=== PATIENT | female | born 1945 | race Caucasian/White ===

== ENCOUNTER 2022-02-19 14:23 | Inpatient (IN) | payer MEDICARE ==
[~2022-02-19] VITALS: Ht 162.6 cm; Wt 94.1 kg
[2022-02-19] MEDS ORDERED: MORPHINE 4 MG/ML 1ML VIAL/SYRINGE IV ONE ×2 (14:40→15:40)
[2022-02-19 15:05] LABS: BASO # 0.1 10^3/uL (0.0-0.2); BASO % 0.5 % (0.0-1.0); EOS # 0.1 10^3/uL (0.0-0.5); EOS % 1.1 % (0.0-3.0); HEMATOCRIT 36.4 % (36.0-47.0); LYMPH # 1.3 10^3/uL (1.5-5.0); LYMPH % 10.4 % (24.0-44.0); MEAN CORPUSCULAR HEMOGLOBIN 24.7 pg (27.0-33.0); MEAN CORPUSCULAR HGB CONC 30.2 g/dl (32.0-36.5); MEAN CORPUSCULAR VOLUME 81.8 fl (80.0-96.0); MONO # 0.9 10^3/uL (0.0-0.8); MONO % 6.8 % (2.0-8.0); NEUTROPHILS # 10.3 10^3/uL (1.5-8.5); NEUTROPHILS % 80.6 % (36.0-66.0); PLATELET COUNT, AUTOMATED 304 10^3/uL (150-450); RED BLOOD COUNT 4.45 10^6/uL (4.00-5.40); WHITE BLOOD COUNT 12.8 10^3/uL (4.0-10.0)
[2022-02-19] MEDS ORDERED: ONDANSETRON 4MG/2ML VIAL IV ONE (15:40)
[2022-02-19] MEDS ORDERED: ONDANSETRON 4MG/2ML VIAL As Ordered ONE ×2 (15:42→22:27)
[2022-02-19 16:06] LABS: INR 1.18; PROTHROMBIN TIME 15.4 SECONDS (12.7-14.5)
[2022-02-19 16:07] LABS: PARTIAL THROMBOPLASTIN TIME 35.5 SECONDS (25.9-37.0)
[2022-02-19 16:13] LABS: CALCIUM LEVEL 8.6 MG/DL (8.8-10.2); CREATININE FOR GFR 1.06 MG/DL (0.55-1.30); GLOMERULAR FILTRATION RATE 53.5 (>39); POTASSIUM SERUM 4.4 MEQ/L (3.5-5.1)
[2022-02-19] MEDS ORDERED: propofoL 200 MG/20 ML VIAL IV.PROC PRN (16:40)
[2022-02-19] MEDS ORDERED: fentaNYL 100 MCG/2 ML INJECTION IV ONE ×3 (16:40→20:10)
[2022-02-19] MEDS: NS 1,000 ML IV SCH ×2 (16:44→21:09)
[2022-02-19] MEDS ORDERED: propofoL 200 MG/20 ML VIAL As Ordered ONE ×2 (19:22→21:34)
[2022-02-19] MEDS: propofoL 200 MG/20 ML VIAL IV.PROC PRN ×2 (19:49→19:59)
[2022-02-19] MEDS ORDERED: HOME MED LIST COMPLETE! XX SCH (20:15)
[2022-02-19 20:54] LABS: RSV AMPLIFICATION NEGATIVE (NEGATIVE)
[2022-02-19] MEDS ORDERED: ROCURONIUM BROMIDE 50 MG/5 ML VIAL As Ordered ONE (21:34)
[2022-02-19] MEDS ORDERED: fentaNYL 100 MCG/2 ML INJECTION As Ordered ONE (21:34)
[2022-02-19] MEDS ORDERED: LIDOCAINE 2% 100MG/5ML SDV (FOR ANES.) As Ordered ONE (21:34)
[2022-02-19] MEDS ORDERED: dexameTHASONE 4 MG/ML 1ML VIAL (J1100 PER 1MG) As Ordered ONE (22:27)
[2022-02-19] MEDS ORDERED: SUGAMMADEX SODIUM 500 MG/5 ML VIAL (BRIDION) As Ordered ONE (22:27)
[2022-02-19] MEDS ORDERED: ACETAMINOPHEN 1000MG 100ML IV BTL (OFIRMEV) (J0131 PER 10MG) As Ordered ONE (22:28)
[2022-02-19] MEDS ORDERED: fentaNYL 100 MCG/2 ML INJECTION IV PRN (23:15)
[2022-02-19] MEDS ORDERED: LR 1,000 ML IV SCH ×2 (23:15→23:55)
[2022-02-19] MEDS ORDERED: ONDANSETRON 4MG/2ML VIAL IV PRN (23:15)
[2022-02-20] VITALS (11 sets, daily range): BP systolic 124–144; BP diastolic 56–75; O2SAT 94
[2022-02-20] MEDS ORDERED: DEXTROSE 50% 50 ML SYRINGE IV PRN (00:40)
[2022-02-20] MEDS ORDERED: GLUCAGON INJ 1MG VIAL SC PRN (00:40)
[2022-02-20] MEDS ORDERED: GLUCOSE 4GM CHEW TABLET PO PRN (00:40)
[2022-02-20] MEDS: PERCOCET 5MG/325MG TAB PO PRN ×3 (01:15→14:52)
[2022-02-20] MEDS: APIXABAN 5 MG TAB (ELIQUIS) PO SCH ×2 (08:43→21:27)
[2022-02-20] MEDS: INSULIN LISPRO (NovoLOG) PER UNIT SC SCH ×3 (08:44→19:00)
[2022-02-20] MEDS ORDERED: DOCUSATE SODIUM 100MG CAPSULE PO SCH (09:00)
[2022-02-20] MEDS ORDERED: METO1TAB33 PO ×2 (14:04)
[2022-02-20] MEDS ORDERED: ELIQ5TAB PO (14:04)
[2022-02-20] MEDS ORDERED: METF500T13 PO (14:04)
[2022-02-20] MEDS ORDERED: CITA20TA7 PO (14:04)
[2022-02-20] MEDS ORDERED: ROSU20TA5 PO (14:04)
[2022-02-20] MEDS ORDERED: HOME MED LIST COMPLETE! XX SCH (14:05)
[2022-02-20] MEDS ORDERED: zolPIDEM TARTRATE 5 MG TAB PO PRN (17:35)
[2022-02-20] MEDS ORDERED: diphenhydrAMINE 50MG/ML VIAL (J1200) IV PRN (17:35)
[2022-02-20] MEDS ORDERED: ONDANSETRON 4MG/2ML VIAL IV PRN (17:35)
[2022-02-20] MEDS ORDERED: HYDROmorphone 2 MG TAB PO PRN (17:35)
[2022-02-20] MEDS ORDERED: SENNA 8.6 MG TAB (SENOKOT) PO PRN (17:35)
[2022-02-20] MEDS ORDERED: MORPHINE 4 MG/ML 1ML VIAL/SYRINGE IV PRN (17:35)
[2022-02-20] MEDS: ACETAMINOPHEN TAB 650MG DOSE (2X325MG) PO PRN (18:59)
[2022-02-20] MEDS: oxyCODONE 5MG TAB PO PRN (19:00)
[2022-02-20] MEDS: DOCUSATE SODIUM 100MG CAPSULE PO SCH (21:28)
[2022-02-21 06:00] VITALS: BP 126/57
[2022-02-21 06:29] LABS: BLOOD UREA NITROGEN 13 MG/DL (7-18); CALCIUM LEVEL 9.2 MG/DL (8.8-10.2); CARBON DIOXIDE LEVEL 28 MEQ/L (21-32); CHLORIDE LEVEL 107 MEQ/L (98-107); CREATININE FOR GFR 0.95 MG/DL (0.55-1.30); GLOMERULAR FILTRATION RATE > 60.0 (>39); GLUCOSE, FASTING 118 MG/DL (70-100); POTASSIUM SERUM 4.2 MEQ/L (3.5-5.1); SODIUM LEVEL 141 MEQ/L (136-145)
[2022-02-21] MEDS: DOCUSATE SODIUM 100MG CAPSULE PO SCH ×2 (08:17→21:45)
[2022-02-21] MEDS: SENNA 8.6 MG TAB (SENOKOT) PO SCH (08:17)
[2022-02-21] MEDS: INSULIN LISPRO (NovoLOG) PER UNIT SC SCH ×3 (08:18→17:09)
[2022-02-21 09:00] VITALS: O2SAT 93
[2022-02-21] MEDS: oxyCODONE 5MG TAB PO PRN ×3 (09:56→21:46)
[2022-02-21 14:00] VITALS: BP 119/67
[2022-02-21] MEDS ORDERED: MORPHINE 4 MG/ML 1ML VIAL/SYRINGE IV PRN (14:55)
[2022-02-21 20:00] VITALS: BP 133/62
[2022-02-21 21:00] VITALS: O2SAT 92
[2022-02-21] MEDS: ACETAMINOPHEN TAB 650MG DOSE (2X325MG) PO PRN (23:11)
[2022-02-22 05:49] VITALS: BP 154/82
[2022-02-22] MEDS: INSULIN LISPRO (NovoLOG) PER UNIT SC SCH ×3 (08:40→17:30)
[2022-02-22] MEDS: METOPROLOL SUCC (TopROL XL) 100MG *XL* TAB PO SCH (08:41)
[2022-02-22] MEDS: SENNA 8.6 MG TAB (SENOKOT) PO SCH (08:41)
[2022-02-22] MEDS: ROSUVASTATIN 10 MG TAB (CRESTOR) PO SCH (08:41)
[2022-02-22] MEDS: ACETAMINOPHEN TAB 650MG DOSE (2X325MG) PO PRN ×2 (08:42→21:18)
[2022-02-22] MEDS: DOCUSATE SODIUM 100MG CAPSULE PO SCH ×2 (08:42→21:17)
[2022-02-22] MEDS: CitaloPRAM (CeleXA) 20 MG TAB PO SCH (08:43)
[2022-02-22] MEDS: oxyCODONE 5MG TAB PO PRN ×3 (08:43→21:18)
[2022-02-22 09:40] VITALS: O2SAT 93
[2022-02-22 14:00] VITALS: BP 146/82
[2022-02-22 20:00] VITALS: BP 122/55
[2022-02-22 21:00] VITALS: O2SAT 94
[2022-02-23 06:00] VITALS: BP 122/56
[2022-02-23] MEDS: INSULIN LISPRO (NovoLOG) PER UNIT SC SCH ×3 (07:30→18:38)
[2022-02-23] MEDS: SENNA 8.6 MG TAB (SENOKOT) PO SCH (08:52)
[2022-02-23] MEDS: ROSUVASTATIN 10 MG TAB (CRESTOR) PO SCH (08:52)
[2022-02-23] MEDS: DOCUSATE SODIUM 100MG CAPSULE PO SCH ×2 (08:53→20:55)
[2022-02-23] MEDS: ACETAMINOPHEN TAB 650MG DOSE (2X325MG) PO PRN ×2 (08:53→16:01)
[2022-02-23] MEDS: CitaloPRAM (CeleXA) 20 MG TAB PO SCH (08:53)
[2022-02-23] MEDS: oxyCODONE 5MG TAB PO PRN ×4 (08:58→23:29)
[2022-02-23 09:00] VITALS: O2SAT 95
[2022-02-23] MEDS: METOPROLOL SUCC (TopROL XL) 100MG *XL* TAB PO SCH (09:00)
[2022-02-23] MEDS ORDERED: METOPROLOL SUCC (TopROL XL) 50MG **XL** TAB PO ONE (10:20)
[2022-02-23 10:30] VITALS: BP 96/49
[2022-02-23 10:35] VITALS: BP 110/46
[2022-02-23] MEDS ORDERED: BISACODYL 10 MG SUPP PR ONE (10:40)
[2022-02-23] MEDS: MOM 30ML SUSPENSION UDC PO ONE ×2 (11:10→11:16)
[2022-02-23 14:00] VITALS: BP 113/46
[2022-02-23 22:00] VITALS: BP 119/49
[2022-02-24 05:55] LABS: BASO # 0.1 10^3/uL (0.0-0.2); BASO % 0.5 % (0.0-1.0); EOS # 0.2 10^3/uL (0.0-0.5); EOS % 2.2 % (0.0-3.0); HEMATOCRIT 31.5 % (36.0-47.0); HEMOGLOBIN 9.5 g/dl (12.0-15.5); LYMPH # 1.4 10^3/uL (1.5-5.0); LYMPH % 15.4 % (24.0-44.0); MEAN CORPUSCULAR HEMOGLOBIN 24.7 pg (27.0-33.0); MEAN CORPUSCULAR HGB CONC 30.2 g/dl (32.0-36.5); MEAN CORPUSCULAR VOLUME 81.8 fl (80.0-96.0); MONO # 0.8 10^3/uL (0.0-0.8); MONO % 8.6 % (2.0-8.0); NEUTROPHILS # 6.7 10^3/uL (1.5-8.5); PLATELET COUNT, AUTOMATED 295 10^3/uL (150-450); RED BLOOD COUNT 3.85 10^6/uL (4.00-5.40); WHITE BLOOD COUNT 9.3 10^3/uL (4.0-10.0)
[2022-02-24 06:00] VITALS: BP 122/55
[2022-02-24] MEDS: oxyCODONE 5MG TAB PO PRN ×2 (06:06→12:07)
[2022-02-24 06:23] LABS: BLOOD UREA NITROGEN 17 MG/DL (7-18); CALCIUM LEVEL 8.2 MG/DL (8.8-10.2); CARBON DIOXIDE LEVEL 29 MEQ/L (21-32); CHLORIDE LEVEL 107 MEQ/L (98-107); CREATININE FOR GFR 0.93 MG/DL (0.55-1.30); GLOMERULAR FILTRATION RATE > 60.0 (>39); GLUCOSE, FASTING 103 MG/DL (70-100); POTASSIUM SERUM 3.7 MEQ/L (3.5-5.1); SODIUM LEVEL 142 MEQ/L (136-145)
[2022-02-24] MEDS: INSULIN LISPRO (NovoLOG) PER UNIT SC SCH ×3 (07:30→22:00)
[2022-02-24] MEDS: ROSUVASTATIN 10 MG TAB (CRESTOR) PO SCH (07:58)
[2022-02-24] MEDS: SENNA 8.6 MG TAB (SENOKOT) PO SCH (07:58)
[2022-02-24] MEDS: CitaloPRAM (CeleXA) 20 MG TAB PO SCH (07:58)
[2022-02-24] MEDS: ACETAMINOPHEN TAB 650MG DOSE (2X325MG) PO PRN ×3 (07:59→22:39)
[2022-02-24] MEDS: DOCUSATE SODIUM 100MG CAPSULE PO SCH ×2 (07:59→21:00)
[2022-02-24 09:00] VITALS: O2SAT 94
[2022-02-24] MEDS: METOPROLOL SUCC (TopROL XL) 100MG *XL* TAB PO SCH (09:00)
[2022-02-24] MEDS: BISACODYL 10 MG SUPP PR SCH (14:15)
[2022-02-24] MEDS: MIRALAX *UNIT DOSE* 17GM PACKET PO SCH (14:15)
[2022-02-24] MEDS ORDERED: TRANEXAMIC ACID 100 MG/ML 10ML VIAL As Ordered ONE (17:10)
[2022-02-24] MEDS ORDERED: LIDOCAINE W/EPINEPHRINE 1% 20ML VIAL As Ordered ONE (17:10)
[2022-02-24] MEDS ORDERED: VANCOMYCIN 1000MG/20ML VIAL As Ordered ONE (17:10)
[2022-02-24] MEDS ORDERED: ROPIvacaine 0.5% 30ML INJECTION (J2795 PER 1MG) PN ONE (17:20)
[2022-02-24] MEDS ORDERED: MIDAZOLAM INJ 2MG/2ML VIAL (J2250 PER 1MG) IV PRN (17:20)
[2022-02-24] MEDS ORDERED: LR 1,000 ML IV SCH ×2 (17:20→21:45)
[2022-02-24] MEDS ORDERED: dexameTHASONE 10MG/1ML VIAL PRES.FREE (J1100 PER 1MG) PN ONE (17:20)
[2022-02-24] MEDS ORDERED: INSULIN LISPRO (NovoLOG) PER UNIT SC PRN (17:20)
[2022-02-24] MEDS ORDERED: EPINEPHrine INJ 1 MG/ML 1ML AMP PN ONE (17:20)
[2022-02-24] MEDS ORDERED: fentaNYL 100 MCG/2 ML INJECTION IV PRN ×2 (17:20→21:45)
[2022-02-24] MEDS ORDERED: SODIUM BICARBONATE 4.2% INJ 10ML SYRINGE As Ordered ONE (17:24)
[2022-02-24] MEDS ORDERED: SODIUM BICARBONATE 8.4% INJ 50 ML SYRINGE As Ordered ONE (17:24)
[2022-02-24] MEDS ORDERED: ceFAZolin 2 GM/D5W 50 ML IV BAG (J0690 PER 500MG) As Ordered ONE (18:32)
[2022-02-24] MEDS ORDERED: ceFAZolin 1GM VIAL (J0690 PER 500MG) As Ordered ONE (18:32)
[2022-02-24] MEDS ORDERED: PHENYLephrine 500MCG 5ML (100MCG/ML) SYRINGE As Ordered ONE (19:02)
[2022-02-24] MEDS ORDERED: ACETAMINOPHEN 1000MG 100ML IV BTL (OFIRMEV) (J0131 PER 10MG) As Ordered ONE (19:02)
[2022-02-24] MEDS ORDERED: LACRILUBE (AKWA TEARS) OPHTH OINT 3.5 GM As Ordered ONE (19:02)
[2022-02-24] MEDS ORDERED: ROCURONIUM BROMIDE 50 MG/5 ML VIAL As Ordered ONE ×3 (19:02→20:56)
[2022-02-24] MEDS ORDERED: MIDAZOLAM INJ 2MG/2ML VIAL (J2250 PER 1MG) As Ordered ONE (19:02)
[2022-02-24] MEDS ORDERED: KETOROLAC 60MG 2ML VIAL As Ordered ONE (19:02)
[2022-02-24] MEDS ORDERED: ONDANSETRON 4MG/2ML VIAL As Ordered ONE (19:02)
[2022-02-24] MEDS ORDERED: LIDOCAINE 2% 100MG/5ML SDV (FOR ANES.) As Ordered ONE (19:02)
[2022-02-24] MEDS ORDERED: PHENYLEPHRINE 10MG/ML 1ML VIAL (J2370 PER 1) As Ordered ONE (19:02)
[2022-02-24] MEDS ORDERED: fentaNYL 250 MCG/5 ML INJECTION As Ordered ONE (19:02)
[2022-02-24] MEDS ORDERED: dexameTHASONE 4 MG/ML 1ML VIAL (J1100 PER 1MG) As Ordered ONE (19:02)
[2022-02-24] MEDS ORDERED: SUGAMMADEX SODIUM 500 MG/5 ML VIAL (BRIDION) As Ordered ONE (19:04)
[2022-02-24] MEDS ORDERED: oxyCODONE 5MG TAB PO PRN (21:45)
[2022-02-24] MEDS ORDERED: ONDANSETRON 4MG/2ML VIAL IV PRN (21:45)
[2022-02-24] MEDS ORDERED: HYDROmorphone 2 MG TAB PO PRN (21:50)
[2022-02-24] MEDS ORDERED: MORPHINE 4 MG/ML 1ML VIAL/SYRINGE IV PRN (21:50)
[2022-02-24 22:33] VITALS: BP 124/73
[2022-02-24 23:00] VITALS: BP 120/68
[2022-02-24 23:59] VITALS: BP 158/66
[2022-02-25 01:22] VITALS: BP 147/66
[2022-02-25] MEDS: ceFAZolin SOD 1 GM in D5W MINI-BAG PLUS 50 ML IV SCH ×3 (02:41→18:01)
[2022-02-25 05:57] VITALS: BP 146/65
[2022-02-25 06:25] LABS: BASO % 0.2 % (0.0-1.0); HEMOGLOBIN 8.5 g/dl (12.0-15.5); LYMPH # 0.8 10^3/uL (1.5-5.0); LYMPH % 6.2 % (24.0-44.0); MEAN CORPUSCULAR HEMOGLOBIN 24.9 pg (27.0-33.0); MEAN CORPUSCULAR HGB CONC 30.4 g/dl (32.0-36.5); MEAN CORPUSCULAR VOLUME 81.9 fl (80.0-96.0); MONO # 0.4 10^3/uL (0.0-0.8); NEUTROPHILS # 11.8 10^3/uL (1.5-8.5); NEUTROPHILS % 89.5 % (36.0-66.0); PLATELET COUNT, AUTOMATED 295 10^3/uL (150-450); RED BLOOD COUNT 3.42 10^6/uL (4.00-5.40); WHITE BLOOD COUNT 13.2 10^3/uL (4.0-10.0)
[2022-02-25 06:58] LABS: CALCIUM LEVEL 8.5 MG/DL (8.8-10.2); CREATININE FOR GFR 1.05 MG/DL (0.55-1.30); GLOMERULAR FILTRATION RATE 54.1 (>39); POTASSIUM SERUM 4.6 MEQ/L (3.5-5.1)
[2022-02-25] MEDS: ROSUVASTATIN 10 MG TAB (CRESTOR) PO SCH (08:59)
[2022-02-25] MEDS: INSULIN LISPRO (NovoLOG) PER UNIT SC SCH ×3 (08:59→18:00)
[2022-02-25] MEDS: MIRALAX *UNIT DOSE* 17GM PACKET PO SCH (08:59)
[2022-02-25 09:00] VITALS: O2SAT 96
[2022-02-25] MEDS: BISACODYL 10 MG SUPP PR SCH (09:00)
[2022-02-25] MEDS: ACETAMINOPHEN TAB 650MG DOSE (2X325MG) PO PRN ×2 (09:00→18:00)
[2022-02-25] MEDS: SENNA 8.6 MG TAB (SENOKOT) PO SCH (09:01)
[2022-02-25] MEDS: CitaloPRAM (CeleXA) 20 MG TAB PO SCH (09:01)
[2022-02-25] MEDS: METOPROLOL SUCC (TopROL XL) 100MG *XL* TAB PO SCH (09:07)
[2022-02-25] MEDS: DOCUSATE SODIUM 100MG CAPSULE PO SCH ×2 (09:07→19:54)
[2022-02-25 10:00] VITALS: BP 124/56
[2022-02-25] MEDS ORDERED: OXYC1TAB23 PO (10:32)
[2022-02-25] MEDS ORDERED: ACET500P3 PO (10:34)
[2022-02-25] MEDS: oxyCODONE 5MG TAB PO PRN ×2 (11:30→22:45)
[2022-02-25] MEDS ORDERED: COLA100C5 PO (12:08)
[2022-02-25] MEDS ORDERED: MIRA1POW3 PO (12:08)
[2022-02-25] MEDS: IBUPROFEN 600MG TAB PO PRN ×2 (12:19→19:54)
[2022-02-25 14:22] VITALS: BP 122/58
[2022-02-25 22:00] VITALS: BP 113/54
[2022-02-26] VITALS (7 sets, daily range): BP systolic 84–112; BP diastolic 46–63
[2022-02-26] MEDS: ACETAMINOPHEN TAB 650MG DOSE (2X325MG) PO PRN ×2 (01:09→09:02)
[2022-02-26 06:10] LABS: BASO # 0.1 10^3/uL (0.0-0.2); BASO % 0.5 % (0.0-1.0); EOS # 0.1 10^3/uL (0.0-0.5); EOS % 0.6 % (0.0-3.0); HEMOGLOBIN 7.4 g/dl (12.0-15.5); LYMPH # 1.7 10^3/uL (1.5-5.0); LYMPH % 16.7 % (24.0-44.0); MEAN CORPUSCULAR HEMOGLOBIN 24.7 pg (27.0-33.0); MEAN CORPUSCULAR HGB CONC 29.6 g/dl (32.0-36.5); MEAN CORPUSCULAR VOLUME 83.6 fl (80.0-96.0); MONO # 0.7 10^3/uL (0.0-0.8); NEUTROPHILS # 7.3 10^3/uL (1.5-8.5); NEUTROPHILS % 73.6 % (36.0-66.0); PLATELET COUNT, AUTOMATED 295 10^3/uL (150-450); RED BLOOD COUNT 2.99 10^6/uL (4.00-5.40); WHITE BLOOD COUNT 9.9 10^3/uL (4.0-10.0)
[2022-02-26 06:41] LABS: CALCIUM LEVEL 7.8 MG/DL (8.8-10.2); CREATININE FOR GFR 0.96 MG/DL (0.55-1.30); POTASSIUM SERUM 3.9 MEQ/L (3.5-5.1)
[2022-02-26] MEDS: INSULIN LISPRO (NovoLOG) PER UNIT SC SCH ×2 (07:30→13:22)
[2022-02-26] MEDS: SENNA 8.6 MG TAB (SENOKOT) PO SCH (08:53)
[2022-02-26] MEDS: BISACODYL 10 MG SUPP PR SCH (08:57)
[2022-02-26] MEDS: CitaloPRAM (CeleXA) 20 MG TAB PO SCH (08:57)
[2022-02-26] MEDS: DOCUSATE SODIUM 100MG CAPSULE PO SCH (08:58)
[2022-02-26] MEDS: MIRALAX *UNIT DOSE* 17GM PACKET PO SCH (08:58)
[2022-02-26] MEDS: ROSUVASTATIN 10 MG TAB (CRESTOR) PO SCH (08:58)
[2022-02-26] MEDS ORDERED: METOPROLOL SUCC (TopROL XL) 50MG **XL** TAB PO SCH (09:00)
[2022-02-28] MEDS ORDERED: SELF1KIT MC ×2 (17:25→17:29)
[2022-02-28] MEDS ORDERED: METO25TA4 PO (17:29)
== END 2022-02-26 15:45 | disposition home health service (06) | DRG 483 ==
LOC: EDBD 14:23 → M ED 14:23 → M SDC 20:32 → UNDOADMIN 20:32 → M ED INP 20:32 → M MS5PR 02-20 01:00 → M SDC 02-22 07:47 → M MS5PR 02-22 07:48
PROVIDERS: ADMIT Internal Medicine Nephrology; ATTEND Internal Medicine Nephrology
PROC: 0PSDXZZ Reposition Left Humeral Head, External Approach (ICD-10-PCS; 2022-02-19)
PROC: 0RRK00Z Replacement of Left Shoulder Joint with Reverse Ball and Socket Synthetic Substitute, Open Approach (ICD-10-PCS; principal; 2022-02-24 07:30)
PROC: 30233N1 Transfusion of Nonautologous Red Blood Cells into Peripheral Vein, Percutaneous Approach (ICD-10-PCS; 2022-02-26)
DX: S42.142A Displaced fracture of glenoid cavity of scapula, left shoulder, initial encounter for closed fracture (principal); I48.20 Chronic atrial fibrillation, unspecified; D62 Acute posthemorrhagic anemia; E04.1 Nontoxic single thyroid nodule; E11.9 Type 2 diabetes mellitus without complications; E66.9 Obesity, unspecified; Z96.651 Presence of right artificial knee joint; Z86.718 Personal history of other venous thrombosis and embolism; Z79.899 Other long term (current) drug therapy; W18.30XA Fall on same level, unspecified, initial encounter; Y92.009 Unspecified place in unspecified non-institutional (private) residence as the place of occurrence of the external cause; Z79.01 Long term (current) use of anticoagulants; Z79.84 Long term (current) use of oral hypoglycemic drugs

== ENCOUNTER → 2022-03-06 | Outpatient (CLI) | payer MEDICARE ==
[~2022-03-06] MED LIST: ACET500P3 PO; CITA20TA7 PO; COLA100C5 PO; ELIQ5TAB PO; METF500T13 PO; METO1TAB33 PO; METO25TA4 PO; MIRA1POW3 PO; OXYC1TAB23 PO; ROSU20TA5 PO; SELF1KIT MC
== END ==
LOC: M SOG 14:32
PROVIDERS: ATTEND Orthopaedic Surgery Hand Surgery
DX: Z48.89 Encounter for other specified surgical aftercare (principal)

== ENCOUNTER → 2022-03-20 | Outpatient (CLI) | payer MEDICARE | LOC: M SOG 09:14 | PROVIDERS: ATTEND Orthopaedic Surgery Hand Surgery | DX: S42.90XA Fracture of unspecified shoulder girdle, part unspecified, initial encounter for closed fracture (principal) ==

== ENCOUNTER → 2022-04-21 | Outpatient (CLI) | payer MEDICARE | LOC: M SOG 15:31 | PROVIDERS: ATTEND Orthopaedic Surgery Hand Surgery | DX: S42.292D Other displaced fracture of upper end of left humerus, subsequent encounter for fracture with routine healing (principal) ==